=== PATIENT | female | born 1980 | race African-American/Black ===

== ENCOUNTER 2018-04-20 13:45 | Emergency (ER) | payer OTHER | END 2018-04-20 16:39 | disposition home or self-care (01) | LOC: M ED 13:45 | DX: S61.214A Laceration without foreign body of right ring finger without damage to nail, initial encounter (principal); S61.216A Laceration without foreign body of right little finger without damage to nail, initial encounter; W25.XXXA Contact with sharp glass, initial encounter; Y92.018 Other place in single-family (private) house as the place of occurrence of the external cause; Y93.G1 Activity, food preparation and clean up; I10 Essential (primary) hypertension; I25.10 Atherosclerotic heart disease of native coronary artery without angina pectoris; Z79.899 Other long term (current) drug therapy | CPT/HCPCS: 99282 ==

== ENCOUNTER 2021-01-20 14:58 | Observation (INO) | payer OTHER ==
[~2021-01-20] VITALS: Ht 162.6 cm; Wt 83.5 kg
[~2021-01-20 14:58] MED LIST: AMLO1TAB25 PO
[2021-01-20] MEDS ORDERED: ZOLM5TAB20 PO (15:20)
[2021-01-20] MEDS ORDERED: TELM1TAB17 PO (15:20)
[2021-01-20] MEDS ORDERED: LABETALOL 100MG/20ML VIAL IV STA ×3 (15:57→18:53)
[2021-01-20] MEDS ORDERED: TELMISARTAN 20 MG TAB PO ONE (16:00)
[2021-01-20 16:23] LABS: BASO % 0.3 % (0.0-1.0); EOS # 0.1 10^3/uL (0.0-0.5); EOS % 1.3 % (0.0-3.0); HEMATOCRIT 35.1 % (36.0-47.0); HEMOGLOBIN 10.9 g/dl (12.0-15.5); LYMPH # 2.7 10^3/uL (1.5-5.0); MEAN CORPUSCULAR HEMOGLOBIN 29.3 pg (27.0-33.0); MEAN CORPUSCULAR HGB CONC 31.1 g/dl (32.0-36.5); MEAN CORPUSCULAR VOLUME 94.4 fl (80.0-96.0); MONO # 0.5 10^3/uL (0.0-0.8); MONO % 5.5 % (2.0-8.0); NEUTROPHILS # 6.2 10^3/uL (1.5-8.5); NEUTROPHILS % 64.5 % (36.0-66.0); PLATELET COUNT, AUTOMATED 327 10^3/uL (150-450); RED BLOOD COUNT 3.72 10^6/uL (4.00-5.40); WHITE BLOOD COUNT 9.6 10^3/uL (4.0-10.0)
[2021-01-20 16:34] LABS: INR 1.17; PROTHROMBIN TIME 15.2 SECONDS (12.5-14.3)
[2021-01-20 16:35] LABS: PARTIAL THROMBOPLASTIN TIME 31.3 SECONDS (24.2-38.5)
--- NOTE | 2021-01-20 16:37 | REP ---
INDICATION: SOB. COMPARISON: None. TECHNIQUE: Portable FINDINGS: The technique utilized in obtaining the radiograph has magnified the cardiac silhouette and accentuated the interstitial markings. The heart is mildly enlarged and magnified by technique. There is a subtle but diffuse increase in the interstitial markings throughout the lung palomares accentuated by technique. No patchy parenchymal opacities or pleural effusions are present. The osseous structures are normal.. IMPRESSION: Mild cardiomegaly with evidence of mild interstitial edema. <Electronically signed by Delmer Marcus > 01/20/21 [id number]
--- NOTE | 2021-01-20 16:48 | REP ---
INDICATION: leg pain r/o dvt COMPARISON: None. TECHNIQUE: Real time compression and duplex Doppler interrogation of the bilateral lower extremity deep venous system is performed. FINDINGS: Bilaterally, the common femoral, superficial femoral and popliteal veins are fully compressible with transducer pressure and demonstrate normal spontaneous and phasic flow, without evidence of deep venous thrombosis. IMPRESSION: No evidence of deep venous thrombosis of the bilateral lower extremity femoral popliteal venous system. <Electronically signed by Frankie Echeverria > 01/20/21 [id number]
[2021-01-20 16:54] LABS: ALBUMIN 3.7 GM/DL (3.2-5.2); ALT/SGPT 66 U/L (12-78); BILIRUBIN,DIRECT 0.5 MG/DL (0.0-0.2); BILIRUBIN,TOTAL 1.3 MG/DL (0.2-1.0); BLOOD UREA NITROGEN 14 MG/DL (7-18); CALCIUM LEVEL 9.6 MG/DL (8.5-10.1); CARBON DIOXIDE LEVEL 29 MEQ/L (21-32); CHLORIDE LEVEL 103 MEQ/L (98-107); CK-MB VALUE MASS 1.1 NG/ML (<3.6); CPK CREATINE PHOSPHOKINASE 84 U/L (26-192); CREATININE FOR GFR 0.82 MG/DL (0.55-1.30); GLOMERULAR FILTRATION RATE > 60.0 (>58); GLUCOSE, FASTING 107 MG/DL (70-100); LIPASE 363 U/L (73-393); MB/CK RELATIVE INDEX 1.31 (< OR =4); POTASSIUM SERUM 3.6 MEQ/L (3.5-5.1); SODIUM LEVEL 138 MEQ/L (136-145); TOTAL PROTEIN 7.4 GM/DL (6.4-8.2); TROPONIN I < 0.02 NG/ML (< 0.10)
[2021-01-20 17:16] LABS: HCG, SERUM QUALITATIVE NEGATIVE (NEGATIVE)
[2021-01-20 17:20] LABS: NT-PRO BNP 3868 PG/ML (<125)
[2021-01-20] MEDS ORDERED: FUROSEMIDE 40MG/4ML VIAL (J1940) IV ONE (17:25)
[2021-01-20] MEDS ORDERED: ISOVUE-370 76% 100ML VIAL As Ordered ONE (17:58)
--- NOTE | 2021-01-20 18:34 | REPVR ---
PROCEDURE INFORMATION: Exam: CT Abdomen And Pelvis With Contrast Exam date and time: 01/20/2021 6:02 PM Age: 40 years old Clinical indication: Abdominal pain; Additional info: Upper abd pain TECHNIQUE: Imaging protocol: Computed tomography of the abdomen and pelvis with contrast. Radiation optimization: All CT scans at this facility use at least one of these dose optimization techniques: automated exposure control; mA and/or kV adjustment per patient size (includes targeted exams where dose is matched to clinical indication); or iterative reconstruction. Contrast material: ISO 370; Contrast volume: 100 ml; Contrast route: INTRAVENOUS (IV); COMPARISON: No relevant prior studies available. FINDINGS: Lungs: 5 mm noncalcified nodule right lower lobe. Finding likely postinflammatory. Please refer to accompanying CTA thorax report. Heart: Cardiomegaly. Liver: There is a diffuse decrease in hepatic parenchymal density, consistent with steatosis. Hepatomegaly. Gallbladder and bile ducts: The gallbladder is incompletely distended. This is most likely related to incomplete fasting. Clinical correlation to exclude gallbladder pathology suggested. Pancreas: Normal. No ductal dilation. Spleen: Normal. No splenomegaly. Adrenal glands: There is bilateral adrenal hyperplasia. Kidneys and ureters: Normal. No hydronephrosis. Stomach and bowel: Unremarkable. No obstruction. No mucosal thickening. Appendix: No evidence of appendicitis. Intraperitoneal space: Unremarkable. No free air. No significant fluid collection. Vasculature: Unremarkable. No abdominal aortic aneurysm. Lymph nodes: Unremarkable. No enlarged lymph nodes. Urinary bladder: Unremarkable as visualized. Reproductive: 3.6 cm simple right adnexal cyst likely functional. No follow-up suggested. IUD demonstrated centrally within the uterus. Bones/joints: Unremarkable. No acute fracture. Soft tissues: There is a small umbilical hernia. There is no evidence of incarceration. Small right inguinal hernia without incarceration. IMPRESSION: 1. There is a diffuse decrease in hepatic parenchymal density, consistent with steatosis. Hepatomegaly. 2. The gallbladder is incompletely distended. This is most likely related to incomplete fasting. Clinical correlation to exclude gallbladder pathology suggested. 3. There is bilateral adrenal hyperplasia. 4. 3.6 cm simple right adnexal cyst likely functional. No follow-up suggested. Electronically signed by: John Gray On 01/20/2021 18:34:28 PM
--- NOTE | 2021-01-20 18:40 | REPVR ---
PROCEDURE INFORMATION: Exam: CTA Chest With Contrast Exam date and time: 01/20/2021 6:02 PM Age: 40 years old Clinical indication: Chest pain; Additional info: SOB TECHNIQUE: Imaging protocol: Computed tomographic angiography of the chest with contrast. 3D rendering (Not supervised by radiologist): MIP and/or 3D reconstructed images were created by the technologist. Radiation optimization: All CT scans at this facility use at least one of these dose optimization techniques: automated exposure control; mA and/or kV adjustment per patient size (includes targeted exams where dose is matched to clinical indication); or iterative reconstruction. Contrast material: ISO 370; Contrast volume: 100 ml; Contrast route: INTRAVENOUS (IV); COMPARISON: [place] PORTABLE CHEST X-RAY 01/20/2021 4:12 PM FINDINGS: Pulmonary arteries: There are no pulmonary emboli. Aorta: Intraluminal contrast density in the thoracic aorta insufficient to evaluate for dissection. Lungs: 10 mm thick-walled subpleural cyst right apex. Scattered bilateral noncalcified pulmonary parenchymal nodules predominantly in the subpleural lung zones measuring up to 6 mm in the right lower lobe. Lungs otherwise clear. Pleural spaces: Unremarkable. No pneumothorax. No pleural effusion. Heart: Cardiomegaly. Lymph nodes: Multiple mediastinal lymph nodes likely postinflammatory. Bones/joints: Unremarkable. No acute fracture. Soft tissues: Unremarkable. IMPRESSION: 1. Scattered bilateral noncalcified pulmonary parenchymal nodules predominantly in the subpleural lung zones measuring up to 6 mm in the right lower lobe. For patients at low risk (minimal or absent history of smoking and of other known risk factors), no routine follow-up is indicated. For patients at high risk (history of smoking or of other known risk factors), consider optional CT Chest at 12 months. (Reference: Valerie) 2. 10 mm thick-walled subpleural cyst right apex. 3. Cardiomegaly. 4. Intraluminal contrast density in the thoracic aorta insufficient to evaluate for dissection. 5. There are no pulmonary emboli. REFERENCES: Valerie Lloyd, et al. Guidelines for Management of Incidental Pulmonary Nodules Detected on CT Images: From the Fleischner Society 2017. Radiology. 2017;284(1):228-243. Electronically signed by: John Gray On 01/20/2021 18:40:51 PM
[2021-01-20] MEDS ORDERED: ZOLMitriptan TABLET 2.5MG PO PRN (20:20)
[2021-01-20] MEDS: LABETALOL 100MG TAB PO SCH ×3 (21:01→23:00)
--- NOTE | 2021-01-20 23:11 | ECGEPIP ---
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
[2021-01-20] MEDS ORDERED: amLODIPine 5 MG TAB PO ONE (23:50)
--- NOTE | 2021-01-20 23:52 | HPEPDOC ---
[facility] Medical History & Physical Date of Admission Jan 20, 2021 Date of Service: Jan 20, 2021 Attending Physician: TANMAY GUERRERO MD History and Physical CHIEF COMPLAINT: Shortness of breath with exertion HISTORY OF PRESENT ILLNESS: Patient is a 40-year-old female presented to the emergency department with a chief complaint of a lump in her abdomen and shortness of breath on exertion. Patient states that she made an appointment with her primary care provider I would probably appointment was not able to be seen for a few weeks so patient decided to come to the emergency department. In the emergency department, patient was found to have very elevated blood pressure. Patient was given IV medications which brought her blood pressure down slightly. Patient has a history of elevated blood pressure and has been taking medications for many years. Patient states every time she goes to the doctor they try to do things to get her blood pressure better but, her blood pressure always remains elevated. Patient denies having any chest pain or any difficulty breathing while at rest but whenever she is walking around, she feels short of breath. Patient states she took her medication today. Patient is otherwise feeling well. PAST MEDICAL HISTORY: 1. Hypertension. 2. History of a stroke one year ago. PAST SURGICAL HISTORY: 1. Appendectomy. 2. Surgery on hand. SOCIAL HISTORY: Patient smokes cigarettes and drinks alcohol. Patient denies any illicit drug use FAMILY HISTORY: High blood pressure and heart disease run in her family ALLERGIES: Please see below. REVIEW OF SYSTEMS: General: Patient denies fevers HEENT: Patient denies headaches Cardiovascular: Patient denies chest pain Respiratory: Patient reports shortness of breath with exertion but denies shortness of breath at rest. GI: Patient reports feeling a lump in her upper abdomen and feeling more bloated than usual. Patient denies any nausea, vomiting, or diarrhea : Patient denies increased frequency or pain with urination Extremities: Patient denies swelling or pain in extremities Neurological: Patient denies numbness or tingling in legs Skin: Patient denies any new rashes or lesions. Hematologic: Patient denies any easy bruising. Lymphatic: Patient denies any lumps lumps or bumps in neck, axilla, or groin HOME MEDICATIONS: Please see below. PHYSICAL EXAMINATION: VITAL SIGNS: Temperature 97.6, pulse 75, respiratory rate 16, blood pressure 179/98, pulse oximetry 99% on room air. General: Alert and oriented female patient who is laying on a stretcher when I walked in the room. Patient did not appear to be in any acute distress. HEENT: Normocephalic, atraumatic, moist mucous membranes. Neck: No lymphadenopathy or thyromegaly Cardiac: Regular rate and rhythm, no murmurs, normal S1, normal S2 Pulm: Clear to auscultation bilaterally. No wheezes, rhonchi, rales Abd: Nondistended, nontender to palpation, normal bowel sounds Ext: No edema bilateral lower extremities LABORATORY DATA: See below. IMAGING: A chest x-ray performed on 01/20/2021 was reported to show mild cardiomegaly with evidence of mild interstitial edema. Duplex lower extremity ultrasound bilaterally performed on 01/12/2021 is repo rted to show no evidence of DVT in the bilateral lower extremity femoral popliteal venous system. A CT of the abdomen and pelvis with IV contrast performed on 01/20/2021 was reported to show diffuse decrease in hepatic parenchymal density consistent with steatosis: Hepatomegaly. Gallbladder is incompletely distended this is most likely related to incomplete fasting. Clinical correlation to exclude gallbladder pathology suggested. Bilateral adrenal hyperplasia. 3.6 simple right adnexal cyst likely functional. No follow-up suggested. A CT angiogram of the chest performed on 01/20/2021 was reported to show: 1. Scattered bilateral noncalcified pulmonary parenchymal nodules predominantly in the subpleural lung zones measuring up to 6 mm in the right lower lobe. For patients at low risk (minimal or absent history of smoking and of other known risk factors), no routine follow-up is indicated. For patients at high risk (history of smoking or of other known risk factors), consider optional CT Chest at 12 months. (Reference: Valerie) 2. 10 mm thick-walled subpleural cyst right apex. 3. Cardiomegaly. 4. Intraluminal contrast density in the thoracic aorta insufficient to evaluate for dissection. 5. There are no pulmonary emboli. MICROBIOLOGY: Please see below. ASSESSMENT: Patient a 40-year-old female who presented to the emergency department with some shortness of breath on exertion who was found to be in hypertensive urgency. . PLAN: 1. Hypertensive urgency. Patient received Lasix, hydrochlorothiazide, telmisarten, and labetalol in the emergency department. This brought the patient's blood pressure down into the 180s over 90s from the 220s over 130s. Am cortisol and renin aldosterone levels will be ordered for the morning. Patient will be placed on telemetry and will be given by mouth labetalol to bring the pressure down. Patient also received 1 dose of amlodipine. Renal ultrasound ordered. We'll continue to monitor the patient's blood pressure closely. 2. DVT prophylaxis Lovenox. 3. CODE STATUS full code Disposition. The patient will be observed overnight and could be discharged in the morning. Vital Signs Vital Signs Date Time Temp Pulse Resp B/P (MAP) Pulse Ox O2 Delivery O2 Flow Rate FiO2 01/20/21 21:15 75 16 99 Room Air 01/20/21 21:01 179/98 01/20/21 15:02 97.6 Laboratory Data Labs 24H Laboratory Tests 2 01/20/21 16:03: Immature Granulocyte % (Auto) 0.4, Neutrophils (%) (Auto) 64.5, Lymphocytes (%) (Auto) 28.0, Monocytes (%) (Auto) 5.5, Eosinophils (%) (Auto) 1.3, Basophils (%) (Auto) 0.3, Neutrophils # (Auto) 6.2, Lymphocytes # (Auto) 2.7, Monocytes # (Auto) 0.5, Eosinophils # (Auto) 0.1, Basophils # (Auto) 0.0, Nucleated Red Blood Cells % (auto) 0.7H, Prothrombin Time 15.2H, Prothromb Time International Ratio 1.17, Activated Partial Thromboplast Time 31.3, Anion Gap 6L, Glomerular Filtration Rate > 60.0, Calcium Level 9.6, Total Bilirubin 1.3H, Direct Bilirubin 0.5H, Aspartate Amino Transf (AST/SGOT) 37, Alanine Aminotransferase (ALT/SGPT) 66, Alkaline Phosphatase 72, Total Creatine Kinase 84, Creatine Kinase MB 1.1, Creatine Kinase MB Relative Index 1.31, Troponin I < 0.02, SY-Bcv-V-Type Natriuretic Peptide 3868H, Total Protein 7.4, Albumin 3.7, Albumin/Globulin Ratio 1.0L, Lipase 363, Human Chorionic Gonadotropin, Qual NEGATIVE CBC/BMP Laboratory Tests 01/20/21 16:03 Microbiology Microbiology 01/20/21 Respiratory Virus Panel (PCR) ([facility]) - Final, Complete Home Medications Scheduled Telmisartan/Hydrochlorothiazid (Telmisartan-Hctz 80-25 mg Tab) 1 Each Tablet, 1 TAB PO DAILY Scheduled PRN Zolmitriptan (Zolmitriptan) 5 Mg Tablet, 5 MG PO DAILY PRN for HEADACHE Allergies Coded Allergies: NUTS (Verified Allergy, Severe, throat swelling up, 01/20/21) A-FIB/CHADSVASC A-FIB History Current/History of A-Fib/PAF?: No GME ATTESTATION GME ATTESTATION My faculty preceptor for this patient encounter was physically present during the encounter and was fully available. All aspects of the patient interview, examination, medical decision making process, and medical care plan development were reviewed and approved by the faculty preceptor. The faculty preceptor is aware and concurs with the plan as stated in the body of this note and will attest to such by his/her cosignature. TRUDI ANNA DO Jan 20, 2021 23:52
[2021-01-21] VITALS (7 sets, daily range): BP systolic 118–182; BP diastolic 70–98
[2021-01-21] MEDS: LABETALOL 100MG TAB PO SCH ×5 (01:00→04:00)
[2021-01-21] MEDS ORDERED: CAPTOpril 6.25 MG PER 1/2 TABLET PO ONE (04:15)
[2021-01-21 05:48] LABS: HEMOGLOBIN 10.6 g/dl (12.0-15.5); MEAN CORPUSCULAR HEMOGLOBIN 29.2 pg (27.0-33.0); MEAN CORPUSCULAR HGB CONC 31.2 g/dl (32.0-36.5); MEAN CORPUSCULAR VOLUME 93.7 fl (80.0-96.0); PLATELET COUNT, AUTOMATED 321 10^3/uL (150-450); RED BLOOD COUNT 3.63 10^6/uL (4.00-5.40); WHITE BLOOD COUNT 9.1 10^3/uL (4.0-10.0)
[2021-01-21 06:07] LABS: ALBUMIN 3.4 GM/DL (3.2-5.2); ALT/SGPT 69 U/L (12-78); BLOOD UREA NITROGEN 15 MG/DL (7-18); CALCIUM LEVEL 8.7 MG/DL (8.5-10.1); CARBON DIOXIDE LEVEL 31 MEQ/L (21-32); CHLORIDE LEVEL 103 MEQ/L (98-107); CREATININE FOR GFR 0.86 MG/DL (0.55-1.30); GLOMERULAR FILTRATION RATE > 60.0 (>58); GLUCOSE, FASTING 85 MG/DL (70-100); POTASSIUM SERUM 3.6 MEQ/L (3.5-5.1); SODIUM LEVEL 138 MEQ/L (136-145)
[2021-01-21] MEDS ORDERED: POTASSIUM CHLORIDE 10 MEQ SR TABLET PO ONE (08:00)
[2021-01-21] MEDS ORDERED: FUROSEMIDE 40MG/4ML VIAL (J1940) IV ONE (08:00)
[2021-01-21] MEDS ORDERED: LABETALOL 100MG TAB PO PRN (08:20)
[2021-01-21] MEDS: ENOXAPARIN 40MG/0.4ML SYRINGE (J1650 PER 10MG) SC SCH (08:55)
[2021-01-21] MEDS: TELMISARTAN 20 MG TAB PO SCH (08:55)
[2021-01-21] MEDS ORDERED: hydrALAZINE 20MG/ML 1ML VIAL (J0360 PER 20MG) IV PRN (11:15)
[2021-01-21] MEDS ORDERED: CHLORTHALIDONE 25 MG TAB PO ONE (11:15)
--- NOTE | 2021-01-21 11:40 | REP ---
INDICATION: resistant hypertension. COMPARISON: None. TECHNIQUE: Real-time sonographic evaluation of the kidneys is performed. Duplex Doppler evaluation of renal arteries performed. FINDINGS: Renal cortical echogenicity pattern is normal bilaterally and contours are smooth. There is no hydronephrosis or mass identified bilaterally. Possible 6 mm calcification is seen in the mid left renal collecting system. The right kidney measures 11.4 x 4.8 x 4.0 cm. Left renal dimensions are 12.3 x 4.8 x 5.6 cm. The urinary bladder is unremarkable. Incidental note is made of a simple cyst in the right ovary 3.5 cm in diameter. Blood flow is seen in the right ovary with duplex Doppler evaluation. Duplex Doppler evaluation of renal arteries is performed. The peak systolic velocity of the abdominal aorta at the level of the renal arteries is 87.7 centimeters/second. The peak systolic velocity of the main right renal artery is 75.2 centimeters/second, the origin of the main right renal artery is not visualized due to overlying bowel gas. Renal to aortic ratio 0.9. Resistive indices right kidney range between 0.68 and 0.70. Acceleration times range between 0.040 and 0.056. Peak systolic velocity of the main left renal artery is 80.7 centimeter/second, the origin of the main left renal artery is not visualized due to overlying bowel gas. Renal to aortic ratio 0.9. Resistive indices left kidney range between 0.60 and 0.69. Acceleration times range between 0.012 and 0.040. IMPRESSION: No compelling duplex Doppler sonographic evidence of hemodynamically significant stenosis of the renal arteries bilaterally. The origins of the main renal arteries are not visualized due to overlying bowel gas, but correlating with CT abdomen with contrast 01/20/2021, the main renal arteries do not appear stenotic at their origins. <Electronically signed by Frankie Echeverria > 01/21/21 [id number]
--- NOTE | 2021-01-21 11:47 | IPNPDOC ---
Text Note Date of Service The patient was seen on 01/21/21. NOTE Subjective: Patient stated that she feels better today. In the morning systolic blood pressure 175. Patient denied fever or chills. Objective: GENERAL APPEARANCE: NAD HEENT: no scleral icterus, no JVD, EOMI CARDIOVASCULAR: S1S2 LUNGS: Diminished lung sounds bilaterally ABDOMEN: soft & not tender w palpitation MUSCULOSKELETAL: no cyanosis, no swelling INTEGUMENT: no generalized pallor NEUROLOGICAL: cranial nerve function from 2-12 intact intact, follows commands, speech not dysarthric Assessment and plan Patient is 40 years old female with past history of hypertension presented hospital with hypertensive urgency Hypertensive urgency/hypertension Patient stated that she has been having poorly controlled blood pressure for many years CT abdomen and pelvis showed Bilateral adrenal hyperplasia. Differential diagnosis includes hyperaldosteronism, pheochromocytoma, Kaden syndrome Await kidney Doppler ultrasound report, aldosterone/creatinine ratio, urine and plasma metanephrines, cortisol level Continue antihypertensive medication, hydralazine IV when necessary, amlodipine 10 mg, chlorthalidone 50 mg Telemetry Acute CHF xr shows cardiomegaly BNP elevated to 3868 Will proceed with echo Cardiac diet I's and O's Normocytic anemia We'll check iron panel, B12, folate Stool for occult blood VS,Fishbone, I+O VS, Fishbone, I+O Laboratory Tests 01/20/21 16:03 01/21/21 05:13 Vital Signs Date Time Temp Pulse Resp B/P (MAP) Pulse Ox O2 Delivery O2 Flow Rate FiO2 01/21/21 10:44 158/76 01/21/21 08:00 97.5 77 18 100 Room Air JOYA ROJAS DO Jan 21, 2021 11:47
[2021-01-21 12:11] LABS: IRON (FE) 45 UG/DL (50-170); TOTAL IRON BINDING CAPACITY 345 UG/DL (250-450)
[2021-01-21 13:12] LABS: CORTISOL AM 14.8 UG/DL (4.3-22.4)
[2021-01-21 13:13] LABS: VITAMIN B12 LEVEL 479 PG/ML (247-911)
[2021-01-21 13:14] LABS: FOLATE 17.1 NG/ML (>5.4)
[2021-01-21] MEDS: FUROSEMIDE 40MG/4ML VIAL (J1940) IV SCH (14:20)
[2021-01-21 20:08] LABS: ALBUMIN 4.3 GM/DL (3.2-5.2); ALT/SGPT 86 U/L (12-78); BILIRUBIN,TOTAL 1.2 MG/DL (0.2-1.0); BLOOD UREA NITROGEN 19 MG/DL (7-18); CALCIUM LEVEL 10.3 MG/DL (8.5-10.1); CARBON DIOXIDE LEVEL 31 MEQ/L (21-32); CHLORIDE LEVEL 97 MEQ/L (98-107); CREATININE FOR GFR 1.11 MG/DL (0.55-1.30); GLOMERULAR FILTRATION RATE > 60.0 (>58); GLUCOSE, FASTING 87 MG/DL (70-100); POTASSIUM SERUM 3.5 MEQ/L (3.5-5.1); SODIUM LEVEL 137 MEQ/L (136-145); TOTAL PROTEIN 8.7 GM/DL (6.4-8.2)
[2021-01-21] MEDS: ACETAMINOPHEN TAB 650MG DOSE (2X325MG) PO PRN (21:05)
[2021-01-22] VITALS: BP 126/70
[2021-01-22] MEDS: FUROSEMIDE 40MG/4ML VIAL (J1940) IV SCH ×3 (00:28→13:03)
[2021-01-22 04:00] VITALS: BP 150/90
[2021-01-22 08:00] VITALS: BP 138/100
[2021-01-22] MEDS: ACETAMINOPHEN TAB 650MG DOSE (2X325MG) PO PRN (08:36)
[2021-01-22] MEDS: TELMISARTAN 20 MG TAB PO SCH (08:36)
[2021-01-22] MEDS: ENOXAPARIN 40MG/0.4ML SYRINGE (J1650 PER 10MG) SC SCH (08:36)
[2021-01-22 08:37] VITALS: BP 138/100
--- NOTE | 2021-01-22 08:50 | ECHO ---
DATE OF PROCEDURE: 01/20/2021 Age: 40 Gender: Female Height: 163 cm Weight: 95 kg REFERRING PHYSICIAN: Evert Jean D.O. INDICATION: Chest pain, unspecified. MEASUREMENTS: 2D Measurements: Left ventricle diastole 4.7 cm Intraventricular septum 1.74 cm Posterior wall 1.72 cm Inferior vena cava 2.6 cm (more than 50% respiratory variation) Left atrium 4.5 cm Left atrial volume index 33 Aortic root 2.9 cm Aortic annulus 2.0 cm Aortic regurgitation pressure half-time 496 msec Right ventricle 3.9 cm Doppler measurements: Mild-moderate aortic regurgitation Aortic regurgitation pressure half-time 496 msec No aortic stenosis Aortic valve velocity 184 cm/s LVOT velocity 103 cm/s Very mild mitral regurgitation Mitral E velocity 72.8 cm/s Mitral A velocity 36.8 cm/s Mitral deceleration time 137 msec Mild tricuspid regurgitation Estimated right ventricle systolic pressure 43-48 mmHg No pulmonic regurgitation Pulmonary artery acceleration time 90 msec MITRAL ANNULAR TISSUE DOPPLER E prime septal 5.9 cm/s, E prime lateral 6.0 cm/s DESCRIPTION: Rhythm was sinus. Image quality was good. This was a 2D, M-mode, color flow Doppler, and pulsed wave Doppler examination including mitral annular tissue Doppler. CONCLUSIONS: 1. Severe concentric left ventricular hypertrophy. Normal regional LV wall motion and wall thickening. Normal LV systolic function. LVEF 60% by visual estimate. Grade 2 LV diastolic dysfunction (pseudonormal LV diastolic filling pattern). 2. Suggestive of moderate elevation of estimated right ventricle systolic pressure. Normal right ventricle size and systolic function. Suggestive of normal CVP. 3. Mild left atrial dilatation by left atrial volume index. 4. Mild aortic valve sclerosis of a 3-cuspid aortic valve. Mild-moderate aortic regurgitation. 5. No pericardial effusion. 6. Otherwise normal appearing echocardiogram Doppler findings. [facility]
[2021-01-22 08:59] LABS: BASO % 0.5 % (0.0-1.0); EOS # 0.2 10^3/uL (0.0-0.5); EOS % 2.3 % (0.0-3.0); HEMATOCRIT 46.2 % (36.0-47.0); LYMPH # 2.2 10^3/uL (1.5-5.0); LYMPH % 27.8 % (24.0-44.0); MEAN CORPUSCULAR VOLUME 90.4 fl (80.0-96.0); MONO # 0.5 10^3/uL (0.0-0.8); MONO % 6.5 % (2.0-8.0); NEUTROPHILS # 4.8 10^3/uL (1.5-8.5); NEUTROPHILS % 62.5 % (36.0-66.0); PLATELET COUNT, AUTOMATED 417 10^3/uL (150-450); RED BLOOD COUNT 5.11 10^6/uL (4.00-5.40); WHITE BLOOD COUNT 7.7 10^3/uL (4.0-10.0)
[2021-01-22] MEDS ORDERED: CHLORTHALIDONE 25 MG TAB PO SCH (09:00)
[2021-01-22 09:02] LABS: HEMOGLOBIN 14.8 g/dl (12.0-15.5)
[2021-01-22 09:26] LABS: ALBUMIN 4.3 GM/DL (3.2-5.2); ALT/SGPT 76 U/L (12-78); BILIRUBIN,TOTAL 0.9 MG/DL (0.2-1.0); BLOOD UREA NITROGEN 20 MG/DL (7-18); CALCIUM LEVEL 10.5 MG/DL (8.5-10.1); CARBON DIOXIDE LEVEL 31 MEQ/L (21-32); CHLORIDE LEVEL 94 MEQ/L (98-107); CREATININE FOR GFR 1.02 MG/DL (0.55-1.30); GLOMERULAR FILTRATION RATE > 60.0 (>58); GLUCOSE, FASTING 108 MG/DL (70-100); MAGNESIUM LEVEL 2.1 MG/DL (1.8-2.4); POTASSIUM SERUM 3.6 MEQ/L (3.5-5.1); SODIUM LEVEL 133 MEQ/L (136-145); TOTAL PROTEIN 8.8 GM/DL (6.4-8.2)
[2021-01-22] MEDS ORDERED: MAGNESIUM GLUCONATE 500 MG TAB PO ONE (09:55)
[2021-01-22] MEDS ORDERED: POTASSIUM CHLORIDE 10 MEQ SR TABLET PO ONE (09:55)
[2021-01-22 12:00] VITALS: BP 134/82
[2021-01-22] MEDS ORDERED: MICA5TAB PO (12:55)
[2021-01-22] MEDS ORDERED: CHLO25TA PO (12:55)
[2021-01-22] MEDS ORDERED: AMLO1TAB25 PO (12:55)
[2021-01-22] MEDS ORDERED: FURO40TA2 PO (12:55)
--- NOTE | 2021-01-22 18:16 | DS.PDOC ---
Discharge Summary General Date of Admission Jan 20, 2021 at 14:59 Date of Discharge 01/22/21 Discharge Summary PROCEDURES PERFORMED DURING STAY: [None]. ADMITTING DIAGNOSES: Hypertensive urgency/hypertension Acute diastolic CHF Normocytic anemia DISCHARGE DIAGNOSES: Hypertensive urgency/hypertension Acute diastolic CHF Normocytic anemia COMPLICATIONS/CHIEF COMPLAINT: Hypertensive Urgency. HISTORY OF PRESENT ILLNESS:Patient is a 40-year-old female presented to the emergency department with a chief complaint of a lump in her abdomen and shortness of breath on exertion. Patient states that she made an appointment with her primary care provider I would probably appointment was not able to be seen for a few weeks so patient decided to come to the emergency department. In the emergency department, patient was found to have very elevated blood pressure. Patient was given IV medications which brought her blood pressure down slightly. Patient has a history of elevated blood pressure and has been taking medications for many years. Patient states every time she goes to the doctor they try to do things to get her blood pressure better but, her blood pressure always remains elevated. Patient denies having any chest pain or any difficulty breathing while at rest but whenever she is walking around, she feels short of breath. Patient states she took her medication today. Patient is otherwise feeli ng well. HOSPITAL COURSE: Hypertensive urgency/hypertension Patient stated that she has been having poorly controlled blood pressure for many years CT abdomen and pelvis showed Bilateral adrenal hyperplasia. Differential diagnosis includes hyperaldosteronism, pheochromocytoma, Kaden syndrome kidney Doppler ultrasound negative for renal stenosis, aldosterone/creatinine ratio pending, urine and plasma metanephrines pending, cortisol level within normal limit Patient received treatment with, hydralazine IV when necessary, amlodipine 10 mg, chlorthalidone 50 mg, blood pressure was stabilized Telemetry Acute CHF xr shows cardiomegaly BNP elevated to 3868 echo showed diastolic dysfunction Cardiac diet I's and O's Normocytic anemia B12, folate within normal limit Iron panel pending Follow-up with PCP for workup completion DISCHARGE MEDICATIONS: Please see below. ALLERGIES: Please see below. PHYSICAL EXAMINATION ON DISCHARGE: VITAL SIGNS: Please see below. GENERAL APPEARANCE: NAD HEENT: no scleral icterus, no JVD, EOMI CARDIOVASCULAR: S1S2 LUNGS: Diminished lung sounds bilaterally ABDOMEN: soft & not tender w palpitation MUSCULOSKELETAL: no cyanosis, no swelling INTEGUMENT: no generalized pallor NEUROLOGICAL: cranial nerve function from 2-12 intact intact, follows commands, speech not dysarthric LABORATORY DATA: Please see below. IMAGING: [facility] NAME: NIURKA PARIKH DATE OF : 1980 BUSINESS NUMBER: [id number] AGE: 40 SEX: F REPORT #: [id number] ROOM: ED TECHNOLOGIST: YVAN DOCTOR: NILO MADISON MD Ordered for Date&Time: 01/20/21 1657 cc: [~ rep ct ivnm] Service Date&Time: 01/20/21 180 This report is in Signed status. Interpretation performed by [facility]. Thank you for having your radiology procedures performed at [facility] RADIOLOGY REPORT Date&Time printed: [~ rep prt dt last] [~ rep prt tm last] Page 2 of 2 [place] [id number] RADIOLOGY REPORT This report is in Signed status. Interpretation performed by [facility]. Thank you for having your radiology procedures performed at [facility] RADIOLOGY REPORT Date&Time printed: [~ rep prt dt last] [~ rep prt tm last] Page 1 of 2 PROCEDURE INFORMATION: Exam: CT Abdomen And Pelvis With Contrast Exam date and time: 01/20/2021 6:02 PM Age: 40 years old Clinical indication: Abdominal pain; Additional info: Upper abd pain TECHNIQUE: Imaging protocol: Computed tomography of the abdomen and pelvis with contrast. Radiation optimization: All CT scans at this facility use at least one of these dose optimization techniques: automated exposure control; mA and/or kV adjustment per patient size (includes targeted exams where dose is matched to clinical indication); or iterative reconstruction. Contrast material: ISO 370; Contrast volume: 100 ml; Contrast route: INTRAVENOUS (IV); COMPARISON: No relevant prior studies available. FINDINGS: Lungs: 5 mm noncalcified nodule right lower lobe. Finding likely postinflammatory. Please refer to accompanying CTA thorax report. Heart: Cardiomegaly. Liver: There is a diffuse decrease in hepatic parenchymal density, consistent with steatosis. Hepatomegaly. Gallbladder and bile ducts: The gallbladder is incompletely distended. This is most likely related to incomplete fasting. Clinical correlation to exclude gallbladder pathology suggested. Pancreas: Normal. No ductal dilation. Spleen: Normal. No splenomegaly. Adrenal glands: There is bilateral adrenal hyperplasia. Kidneys and ureters: Normal. No hydronephrosis. Stomach and bowel: Unremarkable. No obstruction. No mucosal thickening. Appendix: No evidence of appendicitis. Intraperitoneal space: Unremarkable. No free air. No significant fluid collection. Vasculature: Unremarkable. No abdominal aortic aneurysm. Lymph nodes: Unremarkable. No enlarged lymph nodes. Urinary bladder: Unremarkable as visualized. Reproductive: 3.6 cm simple right adnexal cyst likely functional. No follow-up suggested. IUD demonstrated centrally within the uterus. Bones/joints: Unremarkable. No acute fracture. Soft tissues: There is a small umbilical hernia. There is no evidence of incarceration. Small right inguinal hernia without incarceration. IMPRESSION: 1. There is a diffuse decrease in hepatic parenchymal density, consistent with steatosis. Hepatomegaly. 2. The gallbladder is incompletely distended. This is most likely related to incomplete fasting. Clinical correlation to exclude gallbladder pathology suggested. 3. There is bilateral adrenal hyperplasia. 4. 3.6 cm simple right adnexal cyst likely functional. No follow-up suggested. Electronically signed by: John Sandoval On 01/20/2021 18:34:28 PM DD: JOHN SANDOVAL MD 01/20/211801 DT: JESSICA 01/20/211833 DS: FREDA 01/20/211833 [~ rep ct labl] Age: 40 Gender: Female Height: 163 cm Weight: 95 kg REFERRING PHYSICIAN: Evert Jean D.O. INDICATION: Chest pain, unspecified. MEASUREMENTS: 2D Measurements: Left ventricle diastole 4.7 cm Intraventricular septum 1.74 cm Posterior wall 1.72 cm Inferior vena cava 2.6 cm (more than 50% respiratory variation) Left atrium 4.5 cm Left atrial volume index 33 Aortic root 2.9 cm Aortic annulus 2.0 cm Aortic regurgitation pressure half-time 496 msec Right ventricle 3.9 cm Doppler measurements: Mild-moderate aortic regurgitation Aortic regurgitation pressure half-time 496 msec No aortic stenosis Aortic valve velocity 184 cm/s LVOT velocity 103 cm/s Very mild mitral regurgitation Mitral E velocity 72.8 cm/s Mitral A velocity 36.8 cm/s Mitral deceleration time 137 msec Mild tricuspid regurgitation Estimated right ventricle systolic pressure 43-48 mmHg No pulmonic regurgitation Pulmonary artery acceleration time 90 msec MITRAL ANNULAR TISSUE DOPPLER E prime septal 5.9 cm/s, E prime lateral 6.0 cm/s DESCRIPTION: Rhythm was sinus. Image quality was good. This was a 2D, M-mode, color flow Doppler, and pulsed wave Doppler examination including mitral annular tissue Doppler. CONCLUSIONS: 1. Severe concentric left ventricular hypertrophy. Normal regional LV wall motion and wall thickening. Normal LV systolic function. LVEF 60% by visual estimate. Grade 2 LV diastolic dysfunction (pseudonormal LV diastolic filling pattern). 2. Suggestive of moderate elevation of estimated right ventricle systolic pressure. Normal right ventricle size and systolic function. Suggestive of normal CVP. 3. Mild left atrial dilatation by left atrial volume index. 4. Mild aortic valve sclerosis of a 3-cuspid aortic valve. Mild-moderate aorticregurgitation. 5. No pericardial effusion. 6. Otherwise normal appearing echocardiogram Doppler findings. DD: Eldon Mobley MD [facility] 01/21/21 1655 DT: JUNI 01/21/21 170 DS: BELKYS 01/22/21 153 <Electronically signed by Eldon Mobley MD> 01/22/21 153 DS2: [~ rep ct labl] PROGNOSIS: Fair ACTIVITY: [As tolerated]. DIET: Cardiac DISPOSITION: 01 Home, Self-Care. 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 TIME SPENT ON DISCHARGE: 40 minutes. Vital Signs/I&Os Vital Signs Date Time Temp Pulse Resp B/P (MAP) Pulse Ox O2 Delivery O2 Flow Rate FiO2 01/22/21 12:00 97.4 89 18 134/82 (99) 97 Room Air I&O- Last 24 Hours up to 6 AM 01/22/21 06:00 Intake Total 2335 ml Output Total 5825 ml Balance -3490 ml Laboratory Data Labs 24H Laboratory Tests 2 01/21/21 19:10: Anion Gap 9, Glomerular Filtration Rate > 60.0, Calcium Level 10.3#H, Magnesium Level 2.0, Total Bilirubin 1.2H, Aspartate Amino Transf (AST/SGOT) 52H, Alanine Aminotransferase (ALT/SGPT) 86H, Alkaline Phosphatase 97, Total Protein 8.7#H, Albumin 4.3#, Albumin/Globulin Ratio 1.0L 01/22/21 08:37: Anion Gap 8, Glomerular Filtration Rate > 60.0, Calcium Level 10.5H, Magnesium Level 2.1, Total Bilirubin 0.9, Aspartate Amino Transf (AST/SGOT) 32, Alanine Aminotransferase (ALT/SGPT) 76, Alkaline Phosphatase 89, Total Protein 8.8H, Albumin 4.3, Albumin/Globulin Ratio 1.0L, Immature Granulocyte % (Auto) 0.4, Neutrophils (%) (Auto) 62.5, Lymphocytes (%) (Auto) 27.8, Monocytes (%) (Auto) 6.5, Eosinophils (%) (Auto) 2.3, Basophils (%) (Auto) 0.5, Neutrophils # (Auto) 4.8, Lymphocytes # (Auto) 2.2, Monocytes # (Auto) 0.5, Eosinophils # (Auto) 0.2, Basophils # (Auto) 0.0, Nucleated Red Blood Cells % (auto) 0.0 CBC/BMP Laboratory Tests 01/21/21 19:10 01/22/21 08:37 Microbiology Microbiology 01/20/21 Respiratory Virus Panel (PCR) ([facility]) - Final, Complete Discharge Medications Scheduled Amlodipine Besylate (Amlodipine Besylate) 10 Mg Tablet, 10 MG PO DAILY Chlorthalidone (Chlorthalidone) 25 Mg Tablet, 50 MG PO DAILY Furosemide (Furosemide) 40 Mg Tablet, 1 TAB PO DAILY Telmisartan (Micardis) 20 Mg Tablet, 80 MG PO DAILY Scheduled PRN Zolmitriptan (Zolmitriptan) 5 Mg Tablet, 5 MG PO DAILY PRN for HEADACHE, (Reported) Allergies Coded Allergies: NUTS (Verified Allergy, Severe, throat swelling up, 01/20/21) JOYA ROJAS DO Jan 22, 2021 18:16
== END 2021-01-22 15:27 | disposition home or self-care (01) ==
LOC: M ED 14:58 → M ED INP 14:59 → M PCU 01-21 03:30
PROVIDERS: ADMIT Family Medicine; ATTEND Family Medicine
DX: I16.0 Hypertensive urgency (principal); I50.31 Acute diastolic (congestive) heart failure; I11.0 Hypertensive heart disease with heart failure; D64.9 Anemia, unspecified; Z86.73 Personal history of transient ischemic attack (TIA), and cerebral infarction without residual deficits; Z79.899 Other long term (current) drug therapy; F17.218 Nicotine dependence, cigarettes, with other nicotine-induced disorders; Z91.010 Allergy to peanuts
CPT/HCPCS: 36415; 71045; 71275; 74177; 76775; 80048; 80053; 80076; 82088; 82533; 82550; 82553; 82607; 82626; 82746; 83550; 83690; 83735; 83835; 83880; 84244; 84484; 84703; 85025; 85027; 85610; 85730; 87798; 93005; 93041; 93306; 93970; 93975; 94760; 96372; 96374; 96375; 96376; 99285; J0360; J1650; J1940; Q9967

== ENCOUNTER → 2021-02-23 | Outpatient (REF) | payer OTHER ==
[~2021-02-23] MED LIST changes: +CHLO25TA PO; +FURO40TA2 PO; +MICA5TAB PO; +TELM1TAB17 PO; +ZOLM5TAB20 PO
[2021-02-23 19:20] LABS: CREATININE, URINE 27.5 MG/DL; MALB URINE SIEMENS 5.2 MG/L; MAU/CREAT RATIO 18.9 MCG/MG (0.0-30.0)
== END ==
LOC: M LAB REF 17:41
PROVIDERS: ATTEND Nurse Practitioner Family
DX: R73.03 Prediabetes (principal)

== ENCOUNTER → 2021-12-09 | Outpatient (CLI) | payer OTHER | LOC: M PLALAB 10:38 | PROVIDERS: ATTEND Internal Medicine Endocrinology, Diabetes & Metabolism | DX: I10 Essential (primary) hypertension (principal) ==

== ENCOUNTER → 2021-12-21 | Outpatient (CLI) | payer OTHER ==
[2021-12-21 18:14] LABS: HCG, SERUM QUALITATIVE NEGATIVE (NEGATIVE)
== END ==
LOC: M PLALAB 15:50
PROVIDERS: ATTEND Nurse Practitioner Family
DX: I50.33 Acute on chronic diastolic (congestive) heart failure (principal)

== ENCOUNTER → 2022-12-08 | Outpatient (CLI) | payer OTHER | LOC: M WHC 10:58 | PROVIDERS: ATTEND Nurse Practitioner | DX: Z12.31 Encounter for screening mammogram for malignant neoplasm of breast (principal); N63.42 Unspecified lump in left breast, subareolar; N63.12 Unspecified lump in the right breast, upper inner quadrant ==

== ENCOUNTER → 2023-01-03 | Outpatient (CLI) | payer OTHER | LOC: M WHC 15:07 | PROVIDERS: ATTEND Nurse Practitioner | DX: Z12.31 Encounter for screening mammogram for malignant neoplasm of breast (principal) | CPT/HCPCS: 76642; 77066; G0279 ==

== ENCOUNTER → 2024-08-09 | Outpatient (CLI) | payer OTHER ==
[~2024-08-09] MED LIST changes: +ACET-861 PO; +BENZ200C70 PO; +IBUP-1022 PO; +METF-838; +MUCI1TAB18 PO; +OXYB10TA23; +SPIR-10; +TELM1TAB37
== END ==
LOC: M WHC 13:56
PROVIDERS: ATTEND Internal Medicine
DX: Z12.31 Encounter for screening mammogram for malignant neoplasm of breast (principal)